=== PATIENT | male | born 1935 | race Caucasian/White ===

== ENCOUNTER → 2018-11-10 | Outpatient (REF) ==
[~2018-11-10] MED LIST: LISINOPRIL5 MG PO; LOVASTATIN40 M1 PO; METOPROL TAR25 MG PO; WARFARIN3 MG PO
== END | disposition home or self-care (01) | DRG 316 ==
LOC: LAB 12:12
DX: Z95.2 Presence of prosthetic heart valve (principal); Z79.01 Long term (current) use of anticoagulants

== ENCOUNTER 2021-08-22 10:02 | Observation (INO) | payer MEDICARE, OTHER ==
[~2021-08-22] VITALS: Ht 172.7 cm; Wt 90.0 kg
[~2021-08-22 10:02] MED LIST changes: +BACTRIM DS1 TAB PO; +CELEBREX100 M1 PO; +LASIX 20 MG TAB20 MG PO; +LOPRESSOR50 M2 PO; +WARFARIN SODIU2.5 M1 PO
--- NOTE | 2021-08-22 10:05 | NUR ---
PATIENT TO ROOM VIA WHEELCHAIR, BEDSIDE TIRAGE COMPLETED
[2021-08-22 11:09] LABS: HEMATOCRIT 34.6 % (39.0-50.0); HEMOGLOBIN 10.7 g/dl (14.0-18.0); IMMATURE GRANULOCYTES 1.2 % (0.0-5.0); MEAN CELL VOLUME 101.5 fL CALC (80.0-100.0); MEAN CORPUSCULAR HGB 31.4 pG CALC (26.0-32.0); MEAN CORPUSCULAR HGB CONC 30.9 g/dL CAL (32.0-36.0); NEUT# 6.91 thou/uL (1.82-7.42); RED BLOOD COUNT 3.41 mill/uL (4.70-6.10); RED CELL DISTRI WIDTH 14.2 % (11.5-15.5)
--- NOTE | 2021-08-22 11:15 | NUR ---
IN HIGH FOWLERS, RESPS EVEN AND UNLABORED, AUDIBLE WHEEZING. AT BEDSIDE.
[2021-08-22 11:17] LABS: ALBUMIN 3.8 g/dL (3.2-5.0); ALKALINE PHOSPHATASE 111 u/l (38-126); ANION GAP 14 (6-22 (CALC)); BILIRUBIN, TOTAL 0.9 mg/dL (0.0-1.4); BUN 27 mg/dL (8-23); BUN/CREATININE RATIO 17 (12-20 (CALC)); CARBON DIOXIDE 26 mmol/l (22-30); CHLORIDE 104 mmol/l (95-108); CREATININE 1.5 mg/dL (0.7-1.3); GFR 44 ML/MIN (>=60 (CALC)); GFR FOR AFR.AMER. 54 ML/MIN (>=60 (CALC)); POTASSIUM 4.8 mmol/l (3.5-5.1); SGOT/AST 33 u/l (19-48); SODIUM 139 mmol/l (137-146); TOTAL PROTEIN 7.6 g/dL (6.3-8.2)
[2021-08-22 11:31] LABS: INTERNATIONAL NORMALIZED RATIO 2.7 RATIO (0.7-1.3); PROTHROMBIN TIME 26.1 SECONDS (9.0-12.5)
--- NOTE | 2021-08-22 12:30 | NUR ---
MD AT BEDSIDE TO DISCUSS RESULTS AND POC
[2021-08-22] MEDS ORDERED: FUROSEMIDE20 MG PO (14:29)
[2021-08-22] MEDS ORDERED: OMEPRAZOLE DR20 MG PO (14:30)
--- NOTE | 2021-08-22 14:31 | NUR ---
PT SITTING ON EDGE OF STRETCHER, RESPS EVEN AND UNLABORED ON ROOM AIR, WHEEZES IMPROVED, VSS, MONITORS ATTACHED.
--- NOTE | 2021-08-22 14:58 | NUR ---
PHYSICAL THERAPY AT BEDSIDE
--- NOTE | 2021-08-22 16:30 | NUR ---
LETI SHABAZZ APRN AT BEDSIDE TO DISCUSS RESULTS AND POC
--- NOTE | 2021-08-22 16:47 | NUR ---
REPORT CALLED TO WANDA CRYSTAL
--- NOTE | 2021-08-22 17:05 | NUR ---
TO MED SURG VIA WHEELCHAIR, TELE MONITOR IN PLACE.
--- NOTE | 2021-08-22 17:17 | NUR ---
PT ORIENTATED TO ROOM. REPORTS NO PAIN AT THIS TIME. ASSESSMENT ALLOWED: HEART SOUNDS ARE IRREGULAR. MONITORED BY ED SHOWING AFIB. TELE MONITOR IN PLACE. LUNG SOUNDS ARE CLEAR UPPER LOWER LOBES. BREATHING EVEN AND UNLABORED. BOWEL SOUNDS X4, PULSES ARE WEAK RADIAL AND PEDAL. PT WILL BE DAILY WEIGHTS. INR: IS 2.7 BEFORE GIVING COUMADIN. FALL PRECAUTIONS ARE IN PLACE. CALL LIGHT AND PERSINOL BELONGINGS ARE WITHIN REACH.
[2021-08-22 17:54] VITALS: BP 136/79
[2021-08-22 19:00] VITALS: BP 122/64
--- NOTE | 2021-08-22 20:00 | NUR ---
PATIENT RESTING IN BED WITH HOB ELEVATED. AWAKE ALERT AND ORIENTEDX3. PATIENT WITH PRODUCTIVE COUGH-STICKY YELLOW SECREATIONS PER PATIENT. STATES THAT HE HAS HAD IT FOR A COUPLE OF WEEKS. PATIENT INSTRUCTED TO USE URINAL FOR ACCURATE I&O. VERBALIZES UNDERSTANDING. TELE MONITOR IN PLACE-LAST READING WAS SR-77. SLIGHT SWELLING OF LE-ENCOURAGE PATIENT TO ELEVATE ON PILLOWS. SALINE LOCK TO RAC INTACT AND HEALTHY AT THIS TIME. SAFETY PRECAUTIONS REINFORCED. CALL LIGHT IN REACH. WILL CONT TO MONITOR.
--- NOTE | 2021-08-22 20:00 | NUR ---
PATIENT RESTING IN BED AT THIS TIME-AWAKE ALERT AND ORIENTEDEDX3. PATIENT WITH TELE MONITOR IN PLACE-LAST READING WAS SR-77. SALINE LOCK TO RAC INTACT AND HEALTHY AT THIS TIME. ENCOURAGED PATIENT TO ELEVATE FEET ON PILLOWS FOR SWELLING. INSTRUCTED PATIENT TO USE URINAL FOR ACCURATE I&O. VERBALIZES UNDERSTANDING. PATIENT WITH PRODUCTIVE COUGH-PATIENT STATES THAT THE SECREATIONS ARE STICKY AND YELLOW. STATES LAST BM WAS TODAY. SAFETY PRECAUTIONS REINFORCED. CALL LIGHT IN REACH. WILL CONT TO MONITOR.
[2021-08-23] VITALS: BP 104/52
--- NOTE | 2021-08-23 | NUR ---
PATIENT RESTING IN BED AT THIS TIME-APPEARS SLEEPING WITH EYES CLOSED. RESPS ARE EVEN AND UNLABORED. TELE MONITOR IN PLACE. SALINE LOCK TO RAC INTACT. CALL LIGHT IN REACH. WILL CONT TO MONITOR.
[2021-08-23 04:00] VITALS: BP 136/72
--- NOTE | 2021-08-23 04:00 | NUR ---
PATIENT RESTING IN BED AT THIS TIME WITH EYES CLOSED. RESPS ARE EVEN AND UNLABORED. TELE MONITOR IN PLACE. CALL LIGHT IN REACH. WILL CONT TO MONITOR.
[2021-08-23 06:05] LABS: HEMATOCRIT 30.9 % (39.0-50.0); HEMOGLOBIN 10.1 g/dl (14.0-18.0); MEAN CELL VOLUME 96.3 fL CALC (80.0-100.0); MEAN CORPUSCULAR HGB 31.5 pG CALC (26.0-32.0); MEAN CORPUSCULAR HGB CONC 32.7 g/dL CAL (32.0-36.0); RED BLOOD COUNT 3.21 mill/uL (4.70-6.10)
[2021-08-23 06:25] LABS: CHOLESTEROL HDL RATIO 7.2 (<4.4 (CALC)); CREATININE 1.4 mg/dL (0.7-1.3); MAGNESIUM 1.9 mg/dL (1.6-2.3); POTASSIUM 4.6 mmol/l (3.5-5.1)
--- NOTE | 2021-08-23 07:00 | NUR ---
RECIEVED REPORT FROM BONILLA CABEZAS
--- NOTE | 2021-08-23 07:35 | NUR ---
Patient is screened for PT intervention and he may benefit from PT consult to assess his independence and burden of care if medical agrees
[2021-08-23 07:52] VITALS: BP 123/70
--- NOTE | 2021-08-23 07:52 | NUR ---
PT RESTING IN SEMI FOWLERS POSITION. PT IS A/O X3. ASSESSMENT AND VITALS COMPLETED. BP 123/70, HR 83, O2 95% ON ROOM AIR. RESPIRATIONS ARE EVEN AND UNLABORED. EXPIRTORY WHEEZING NOTED TO UPPER LOBES UPON ASCULATATION OF LUNGS. HEART RHYTHM IRREGULAR WITH TELE IN PLACE, SA PER ER MONITORING. BOWEL SOUNDS ARE ACTIVE. #20G RAC FLUSHED, SITE APPEARS HEALTHY AND PATENT. PEDAL PULSES WEAK. TRACE EDEMA NOTED TO BLE. PT DENIES OF ANY PAINS OR DISCOMFORTS AT THIS TIME. ASSISTED TO CHAIR FOR BREAKFAST. ALL SAFETY PRECAUTIONS AE IN PLACE WITH CALL LIGHT IN REACH. WILL CONTINUE TO MONITOR.
--- NOTE | 2021-08-23 10:00 | NUR ---
DR CARBAJAL AND UNIQUE,ANRP AT BEDSIDE
[2021-08-23 10:39] VITALS: BP 117/59
[2021-08-23 11:04] LABS: INTERNATIONAL NORMALIZED RATIO 2.4 RATIO (0.7-1.3); PROTHROMBIN TIME 23.3 SECONDS (9.0-12.5)
[2021-08-23 11:09] VITALS: BP 117/59
--- NOTE | 2021-08-23 12:12 | NUR ---
S- pt stated he was going home and can get around well. 0- pt initially not cooperative with treatment. Gait x 75 with SBA/CGA, pt tends to light touch objects stating he does due to sensory changes in feet. Sit to and from stand was independent with not LOB noted. Tried to give pt a home ex program but he was insistant that he did not need it that he know what to do. BP 120/58 to 117/59 after walking. HR79 to 85, 02 sats 96-97% time spent with pt 25 min. 0- [facility] 17 p-will follow
--- NOTE | 2021-08-23 12:14 | NUR ---
PT SITTING UP IN RECYLINER WATCHING TV. RESPIRAITONS ARE EVEN AND UNLABORED WITH NO DISTRESS NOTED. #20G RAC REMAINS IN PLACE. TELE MONITORING IN PLACE. PT DENIES OF ANY PAINS OR DISCOMFORTS. ALL SAFETY PRECAUTIONS ARE IN PLACE WITH CALL LIGHT IN REACH. WILL CONTINUE TO MONITOR
[2021-08-23] MEDS ORDERED: CETIRIZINE10 MG PO (13:12)
[2021-08-23] MEDS ORDERED: FLONASE AL50 MCG/ACT (13:13)
[2021-08-23] MEDS ORDERED: PREDNISONE50 MG PO (13:13)
--- NOTE | 2021-08-23 13:41 | NUR ---
PT EDUCATED ON DC INSTRUCTIONS AND NEW MEDICATIONS SENT TO PHARMACY. PT VERBALZIED UNDERSTANDING. IV REMOVED WITH CATH STILL INTACT. TELE REMOVED, ER INFORMED. TRANSPORTATION CALLED. WILL CONTINUE TO MONITOR
--- NOTE | 2021-08-23 13:51 | NUR ---
Discharge instructions given. Patient verbalizes understanding of same. Discharged in stable condition via Wheelchair to Home with staff. All belongings sent with pt. PT DC HOME WITH ALL BELONGINGS AND DC INSTRUCTIONS IN STABLE CONDITION VIA WHEELCHAIR.
== END 2021-08-23 13:51 | disposition home or self-care (01) ==
LOC: ED 10:02 → ED-I 12:30 → ED 12:39 → ED-I 12:40 → MS2 12:40
PROVIDERS: Family Medicine; Nurse Practitioner; ADMIT Internal Medicine; ATTEND Internal Medicine
DX: J40 Bronchitis, not specified as acute or chronic (principal); I13.0 Hypertensive heart and chronic kidney disease with heart failure and stage 1 through stage 4 chronic kidney disease, or unspecified chronic kidney disease; I50.9 Heart failure, unspecified; N18.30 Chronic kidney disease, stage 3 unspecified; I48.20 Chronic atrial fibrillation, unspecified; I25.10 Atherosclerotic heart disease of native coronary artery without angina pectoris; I09.9 Rheumatic heart disease, unspecified; E78.5 Hyperlipidemia, unspecified; Z79.01 Long term (current) use of anticoagulants; Z95.2 Presence of prosthetic heart valve; Z87.891 Personal history of nicotine dependence; Z95.1 Presence of aortocoronary bypass graft; Z20.822 Contact with and (suspected) exposure to COVID-19

== ENCOUNTER 2023-01-06 06:47 | Emergency (ER) | payer MEDICARE, OTHER ==
[~2023-01-06] VITALS: Ht 172.7 cm; Wt 91.0 kg
[~2023-01-06 06:47] MED LIST changes: +CETIRIZINE10 MG PO; +FLONASE AL50 MCG/ACT; +FUROSEMIDE20 MG PO; +OMEPRAZOLE DR20 MG PO; +PREDNISONE50 MG PO
[2023-01-06 07:07] VITALS: BP 134/61
[2023-01-06 07:30] VITALS: BP 122/55
[2023-01-06 08:01] VITALS: BP 158/73
[2023-01-06] MEDS ORDERED: ZPAK PO (08:02)
[2023-01-06] MEDS ORDERED: AMOX/K CLAV875 M1 PO (08:02)
[2023-01-06] MEDS ORDERED: VENTOLIN HFA108 MCG PO (08:02)
[2023-01-06] MEDS ORDERED: PREDNISONE50 MG PO (08:02)
== END 2023-01-06 08:20 | disposition home or self-care (01) ==
LOC: ED 06:47
DX: J18.9 Pneumonia, unspecified organism (principal); I48.91 Unspecified atrial fibrillation; Z20.822 Contact with and (suspected) exposure to COVID-19

== ENCOUNTER 2023-10-11 23:34 | Emergency (ER) | payer MEDICARE, OTHER ==
[~2023-10-11] VITALS: Ht 175.3 cm; Wt 91.0 kg
[~2023-10-11 23:34] MED LIST changes: +AMOX/K CLAV875 M1 PO; +VENTOLIN HFA108 MCG PO; +ZPAK PO
[2023-10-12] VITALS (15 sets, daily range): BP systolic 116–155; BP diastolic 53–66
== END 2023-10-12 03:35 | disposition home or self-care (01) ==
LOC: ED 23:34
DX: S81.811A Laceration without foreign body, right lower leg, initial encounter (principal); I48.91 Unspecified atrial fibrillation; W01.0XXA Fall on same level from slipping, tripping and stumbling without subsequent striking against object, initial encounter; Y92.009 Unspecified place in unspecified non-institutional (private) residence as the place of occurrence of the external cause; Z79.01 Long term (current) use of anticoagulants; R09.89 Other specified symptoms and signs involving the circulatory and respiratory systems